=== PATIENT | male | born 1975 | race Caucasian/White ===

== ENCOUNTER 2016-10-04 09:09 | Emergency (ER) | payer OTHER ==
--- NOTE | 2016-10-06 13:20 | ER ---
ADMIT: 10/04/2016 RM/LOC: ER [facility] MR#: [id number] [place], [place] [id number] DIANA MONTAÑO [address] [place] [address] Emergency Room Report SEX: M AGE: 41 : 1975 DATE: 10/04/2016 BRIEF ADDENDUM: Please see my T-sheet for complete review of systems, past medical history, and physical exam. CHIEF COMPLAINT: Nosebleed. HISTORY OF PRESENT ILLNESS: This pleasant 41-year-old white male, who presents with a day's duration of off and on nosebleeds. States he was started on an antihistamine for allergy symptoms. Since then, he has been having some nasal dryness with off and on nosebleeds, usually lasts 5-10 minutes. He is on Eliquis for atrial fibrillation for the past 15 years. Primarily out of the right naris, mild. No recent injury, illness, fever, chills, nausea, or vomiting. COURSE IN THE EMERGENCY ROOM: The patient was seen and examined. He is afebrile and nontoxic. He is in no acute distress. He is alert. There is evidence of fresh clot in the right naris. I did have him blow, identified some active bleeding, very superior anterior naris, very light. I did cauterize this with silver nitrate. Pharynx does have evidence of blood down the back of it. IMPRESSION: Acute anterior epistaxis, right naris. DISPOSITION: Patient was encouraged to rinse his nose with saline spray over- the-counter 5-6 times per day, to keep it moist. Avoid aggressive blowing and wiping of the nose. Continue home medications. Did caution him about use of antihistamine as this may be exacerbating his nosebleed. Return with worsening signs or symptoms. Follow up with Dr. Novoa. Questions sought and answered to best of my ability and patient's satisfaction. Discharged in stable condition. LINDSEY Small / Major Henderson MD / josé luis JOB #: [id number] CC: Major Henderson MD, Attending Physician Elio Novoa MD, Family Physician
== END 2016-10-04 10:30 | disposition home or self-care (01) ==
LOC: ER 09:09
PROC: 0W3Q7ZZ Control Bleeding in Respiratory Tract, Via Natural or Artificial Opening (ICD-10-PCS; principal; 2016-10-04)
DX: R04.0 Epistaxis (principal); I48.91 Unspecified atrial fibrillation; I10 Essential (primary) hypertension